=== PATIENT | male | born 2005 | race Caucasian/White ===

== ENCOUNTER 2025-01-30 07:52 | Emergency (ER) | payer BC, SELFPAY ==
[2025-01-30 07:54] VITALS: BP 144/84
[2025-01-30 08:23] VITALS: BP 121/76
[2025-01-30 08:25] VITALS: BMI 30.6
[2025-01-30 09:00] VITALS: BP 127/83
--- NOTE | 2025-01-30 09:01 | ED.GENMED ---
History of Present Illness
General
Chief Complaint: Sleep Disturbances
Time Seen by Provider: 01/30/25 08:59
History of Present Illness
History of Present Illness:
TIME OF INITIAL ENCOUNTER: 9:05 AM
HPI: 2 days ago, the patient started having left-sided paresthesias primarily in the left chest but also notes similar symptoms in the left upper extremity and at the left calf. He has no headache. He has been having trouble sleeping at nighttime.
He would wake up early in the morning. He does not necessarily feel anxious. He does not have any history of any similar episodes in the past. He did try Olli sleep Gummies over the last couple of nights which has not helped at all. He went to
the doctor yesterday who encouraged blood work but he just wanted to go home and rest instead. At the doctor's office, he had a weird feeling to the left side of the abdomen with palpation but denies pain. He described as a 'vibration' sensation.
EXAM:
GENERAL: Well appearing in no distress
HEENT: Moist oral mucosa
CARDIOVASCULAR: No murmurs, normal heart rate, regular rhythm, No chest wall tenderness
PULMONARY: No respiratory distress, breath sounds are clear and equal
ABDOMEN: Soft with no peritoneal signs, no tenderness
NEUROLOGIC: Excellent strength all extremities, no coordination deficits
PSYCHIATRIC: Appropriate mental status, normal insight and judgement
EXTREMITIES: Nontender, no edema, moves all extremities equally
SKIN: No rash, no lesions
NUMBER AND COMPLEXITY OF PROBLEMS ADDRESSED AT THE ENCOUNTER
� Chronic conditions affecting care: No significant past medical history
� Acute Exacerbation and/or Progression of Chronic Illness: This is an acute problem
� Differential Diagnosis includes: Anxiety, thyroid disease, electrolyte abnormality, dehydration, intracranial pathology
AMOUNT AND/OR COMPLEXITY OF DATA TO BE REVIEWED AND ANALYZED
� I performed an independent evaluation of and my interpretation is:
EKG: Sinus 84, no acute ST abnormality, no change from 10/13/2022
CT: CAT scan of the brain shows no acute abnormality
X-rays:
Laboratory Studies: CBC is normal, chemistries unremarkable, thyroid also normal, patient did screen positive for marijuana and opiates, alcohol undetected
Other:
� Review of other/old records: The patient was seen here in the Emergency Department 2-1/2 years ago with palpitations
� Clinical information was obtained by an independent historian: I spoke to mother at bedside
� Prescriptions/Medications Considered but not given:
� Further testing considered but not performed:
RISK OF COMPLICATIONS AND/OR MORBIDITY OR MORTALITY OF PATIENT MANAGEMENT
� Social determinants of health affecting care: Lives at home, vapes (nicotine)
� Discussion with other providers:
� Escalation of care including admission/observation vs risk of discharge considered: The patient has a relatively unremarkable workup her UDS is positive for marijuana and opiates. CAT scan of the brain was obtained because he
had unilateral paresthesias. This was normal.
ANY OTHER UPDATES:
10:35 AM: I reassessed patient. Informed patient and other that UDS is positive for opiates and marijuana. Mother indicates that the patient does eat a lot of poppy seeds. The patient could not explain marijuana being positive. Recommend against
anything that could potentially have marijuana containing within. Recommended PMD follow-up to consider anxiety medication.
Phy Exam
Physical Exam
Physical Exam:
See HPI
Course
Orders/Labs/Results
Orders:
Orders
01/30/25 08:30
Electrocardiogram (*1) Urgent
Reason for Study: Chest Pain
EKG- Treatment ONCE
01/30/25 08:34
Fentanyl, Urine Urgent
Urine Drug Abuse Screen Urgent
Date Specimen was Collected: 01/30/25
Time Specimen was Collected: 08:30
01/30/25 09:15
CT Head W/o Iv Contrast Urgent
Comment:
Reason For Exam: acute L sided paresthesias
0.9% Sodium Chloride 1000 ml [Nss] 1,000 ml IV BOLUS
01/30/25 09:27
Alcohol Urgent
Complete Blood Count/With Diff Urgent
Comprehensive Metabolic Panel Urgent
Magnesium Urgent
TSH Reflex To Free T4 Urgent
Abnormal Lab Results
01/30/25 01/30/25
08:34 09:27
Absolute Lymphs (auto) 0.7 L 10^3/uL
(1.2-3.4)
Neutrophils % 79.3 H %
(42.2-75.2)
Lymphocytes % 10.8 L %
(20.5-51.1)
BUN 8 L mg/dl
(9-20)
Urine Opiates Screen Positive H
(Negative)
U Marijuana (THC) Screen Positive H
(Negative)
01/30/25 09:27
01/30/25 09:27
Vital Signs
Initial and Last Documented VS:
Initial Vital Signs
Temp Pulse Resp BP Pulse Ox
36.7 C 90 16 144/84 96
01/30/25 07:54 01/30/25 07:54 01/30/25 07:54 01/30/25 07:54 01/30/25 07:54
Last Documented Vital Signs
Temp Pulse Resp BP Pulse Ox
36.7 C 79 17 130/80 97
01/30/25 07:54 01/30/25 10:30 01/30/25 10:30 01/30/25 10:00 01/30/25 10:30
*Critical Care Note
Total Time (30-74mins, 75-104mins- exclusive of procedures): Not Applicable
ED Attending Note
-
Portions of this chart may have been created with voice recognition software.� Occasional wrong word or��sound alike� substitutions may have occurred due to the inherent limitations of voice recognition software.
Discharge Plan
Departure
Patient Disposition: Home (Routine Discharge)
Date of Disposition: 01/30/25
Time of Disposition: 10:35
Patient with high blood pressure during this ER visit?: Yes
Discharge Problem:
Insomnia
Instructions: Insomnia (DC), BLOOD PRESSURE
Prescriptions:
No Action
No Current Medications
0
Referrals:
Jose Manuel Singh MD [Family Provider] -
Activity Restrictions/Additional Instructions:
Consider taking [id number] Unisom (the kind with doxylamine and it). You could chew 1 of these at nighttime before bed which may help with sleeping. Basic blood work and CAT scan of the brain are normal. UDS is positive for opiates and
marijuana. Alcohol was not detected. Follow-up your primary care doctor. Return here if worse or other concerns.
Interventions
Interventions:
*Risk Screen - Suicide Last Done: 01/30/25 07:54
*General Assessment Last Done: 01/30/25 07:54
*Neglect/Abuse Screening Last Done: 01/30/25 08:11
*ED- Fall Risk Assessment Last Done: 01/30/25 08:32
*ED COVID-19 Vaccine History Last Done: 01/30/25 07:54
ED- Neurological Assessment Last Done: 01/30/25 08:26
ED-Psychological Assessment Last Done: 01/30/25 08:26
Discharge Date and Time
Print Language: LAO
[2025-01-30 09:26] LABS: Amphetamines Negative (Negative); Barbiturates Negative (Negative); Benzodiazepines Negative (Negative); Buprenorphine Negative (Negative); Cocaine Negative (Negative); Marijuana Positive (Negative); Methadone Negative (Negative); Methamphetamines Negative (Negative); Opiates Positive (Negative); Phencyclidine Negative (Negative); Tricyclic Antidepressants Negative (Negative)
[2025-01-30] MEDS: NSS 1000 IV (09:29)
[2025-01-30 09:36] LABS: % Basophils 0.2 % (0-2); % Eosinophils 0.2 % (0-6); % Immature Granulocytes 0.3 % (0-0.5); % Lymphocytes 10.8 % (20.5-51.1); % Monocytes 9.2 % (1.7-9.3); % Neutrophils 79.3 % (42.2-75.2); Absolute Lymphocytes 0.7 10^3/uL (1.2-3.4); Absolute Monocytes 0.6 10^3/uL (0.1-0.6); Absolute Neutrophils 4.8 10^3/uL (1.4-6.5); Hematocrit 44.4 % (39.0-52.0); Mean Corpuscular Hgb 30.5 pg (27.0-31.0); Mean Corpuscular Volume 84.6 fL (80.0-94.0); Mean Platelet Volume 9.2 fL (7.4-10.4); Nucleated Red Blood Cells % 0 % (-); Platelet Count 196 10^3/uL (130-400); Red Blood Cell Count 5.25 10^6/uL (4.70-6.10); White Blood Cell Count 6.1 10^3/uL (4.8-10.8)
[2025-01-30 09:40] LABS: Fentanyl, Urine Negative (Negative)
[2025-01-30 09:56] VITALS: BP 103/72
[2025-01-30 09:56] LABS: ALT (SGPT) 16 U/L (0-50); AST (SGOT) 17 U/L (17-59); Albumin 4.6 g/dl (3.5-5.0); Alkaline Phosphatase 92 U/L (38-126); Blood Urea Nitrogen 8 mg/dl (9-20); Calcium 9.6 mg/dl (8.4-10.2); Carbon Dioxide 22 mmol/L (22-30); Chloride 103 mmol/L (98-107); Estimated Creatinine Clearance > 125 ml/min; Glucose 92 mg/dl (70-99); Magnesium 1.9 mg/dl (1.6-2.3); Potassium 3.8 mmol/L (3.5-5.1); Sodium 139 mmol/L (135-145); Total Bilirubin 1.2 mg/dl (0.2-1.3); Total Protein 7.2 g/dl (6.3-8.2); eGFR > 60.00
[2025-01-30 09:58] LABS: Alcohol None Detected
[2025-01-30 10:00] VITALS: BP 130/80
[2025-01-30 10:25] LABS: TSH Reflex To Free T4 1.09 uIU/ml (0.47-4.68)
== END 2025-01-30 10:58 | disposition home or self-care (01) ==
LOC: EMR 07:52
PROVIDERS: Emergency Medicine; EMERGENCY PHYSICIAN Emergency Medicine; FAMILY PHYSICIAN Family Medicine
DX: G47.00 Insomnia, unspecified (principal); R20.2 Paresthesia of skin; R03.0 Elevated blood-pressure reading, without diagnosis of hypertension; F17.290 Nicotine dependence, other tobacco product, uncomplicated
CPT/HCPCS: 99284; 96360; 70450; 80053; 80306; 80307; 82077; 83735; 84443; 85025; 93005